=== PATIENT | male | born 1955 | race Caucasian/White ===

== ENCOUNTER → 2017-05-04 | Outpatient (CLI) | payer OTHER | LOC: BMCIMAGING 11:12 | PROVIDERS: ATTEND Internal Medicine | DX: R07.2 Precordial pain (principal); R10.10 Upper abdominal pain, unspecified; J98.4 Other disorders of lung ==

== ENCOUNTER → 2017-05-05 | Outpatient (CLI) | payer OTHER | LOC: BRMIMAGING 08:49 | PROVIDERS: ATTEND Internal Medicine | DX: K86.89 Other specified diseases of pancreas (principal); K80.20 Calculus of gallbladder without cholecystitis without obstruction | CPT/HCPCS: 76700-PO ==

== ENCOUNTER → 2017-05-08 | Outpatient (CLI) | payer OTHER ==
[~2017-05-08] MED LIST: IOPAMIDOL (ISOVUE-300) 100 ML BTL ONE
== END ==
LOC: CIMAGING 13:10
PROVIDERS: ATTEND Internal Medicine
DX: K86.2 Cyst of pancreas (principal); K80.20 Calculus of gallbladder without cholecystitis without obstruction
CPT/HCPCS: 74177-PO; Q9967

== ENCOUNTER 2017-05-22 07:00 | Day surgery (SDC) | payer OTHER ==
[2017-05-22] MEDS ORDERED: LR 1,000 ML IV ONE (07:38)
--- NOTE | 2017-05-22 08:09 | PDANEPAE ---
ANE History of Present Illness 62 YO m pancreatic pseudocyst here for EUS EGD ANE Past Medical History - Cardiovascular History Hx Hypertension: No Hx Arrhythmias: No Hx Chest Pain: No Hx Coronary Artery / Peripheral Vascular Disease: No Hx CHF / Valvular Disease: No Hx Palpitations: No Cardiovascular History Comment: ABLATION FOR ATRIAL TACH. NO ISSUES SINCE - Pulmonary History Hx COPD: No Hx Asthma/Reactive Airway Disease: No Hx Recent Upper Respiratory Infection: No Hx Oxygen in Use at Home: No Hx Sleep Apnea: No Sleep Apnea Screening Result - Last Documented: Negative - Neurologic History Hx Cerebrovascular Accident: No Hx Seizures: No Hx Dementia: No - Endocrine History Hx Diabetes: No - Renal History Hx Renal Disorders: No - Liver History Hx Hepatic Disorders: No - Neurological & Psychiatric Hx Hx Neurological and Psychiatric Disorders: No - Cancer History Hx Cancer: No - Congenital Disorder History Hx Congenital Disorders: No - GI History Hx Gastrointestinal Disorders: Yes Gastrointestinal History Comment: DECREASED APPETITE. SMALL GALL STONES - Chronic Pain History Chronic Pain: No - Surgical History Prior Surgeries: LT ING HERNIA 2014. ISABEL BUNIONECTOMY. RT MIDDLE FINGER REPAIR. HEART CATH ABLATION ATRIAL TACH. 1989 ANE Review of Systems Review of Systems: - Exercise capacity METS (RN): 4 METS ANE Patient History - Allergies Allergies/Adverse Reactions: No Known Allergies Allergy (Unverified 05/21/17 16:04) - Home Medications Home Medications: Aspirin DAILY 05/21/17 [Last Taken 05/21/17 08:00] Herbal Drugs DAILY 05/21/17 [Last Taken Unknown] traMADol PRN 05/21/17 [Last Taken Unknown] - NPO status NPO Status: no food or drink >8 hours NPO Since - Liquids (Date): 05/21/17 NPO Since - Liquids (Time): 20:30 NPO Since - Solids (Date): 05/21/17 NPO Since - Solids (Time): 19:30 - Anes Hx Anes Hx: no prior problems - Smoking Hx Smoking Status: Former smoker - Alcohol Use Alcohol Use: Occasionally - Family Anes Hx Family Anes Hx: none ANE Labs/Vital Signs - Vital Signs Blood Pressure: 150/83 Heart Rate: 57 Respiratory Rate: 16 O2 Sat (%): 96 Height: 170.18 cm Weight: 72.575 kg ANE Physical Exam - Airway Neck exam: FROM Mallampati Score: Class 2 Mouth exam: normal dental/mouth exam Mouth image: 1 - missing 2 - missing - Pulmonary Pulmonary: no respiratory distress, clear to auscultation - Cardiovascular Cardiovascular: regular rate and rhythym, no murmur, rub, or gallop - ASA Status ASA Status: II ANE Anesthesia Plan Anesthesia Plan: GA with mask Total IV Anesthesia: Yes
[2017-05-22] MEDS ORDERED: PROPOFOL/EMULSION 500 MG/50 ML BOTTLE IV ONE ×2 (08:14→08:44)
[2017-05-22] MEDS ORDERED: NALOXONE HCL 0.4 MG/ML INJ IVP PRN (08:16)
[2017-05-22] MEDS ORDERED: ONDANSETRON 4 MG/2 ML VIAL IVP PRN (08:22)
[2017-05-22] MEDS ORDERED: ACETAMINOPHEN 500 MG TAB PO PRN (08:22)
--- NOTE | 2017-05-22 08:24 | PDGENHP ---
History & Physical Chief Complaint: panc lesion History of Present Illness: 62 year old male presents for evaluation of abdominal pain/abnl imaging Pertinent Past, Social, Family History: SoHx: + alc. FaMHx; No panc. PMHx: Arthritis Relevant Physical Exam: HEENT anicteric. CV RRR +s1s2. Lungs CTAB. Abd soft, nt Cardiorespiratory Assessment: asa 2
[2017-05-22] MEDS ORDERED: INDOMETHACIN 50 MG SUPP PR PRN (08:29)
[2017-05-22] MEDS ORDERED: NS 500 ML IV SCH (08:30)
[2017-05-22] MEDS ORDERED: levOFLOXACIN 500 MG/DEXTROSE/100 ML BAG IV ONE (08:41)
[2017-05-22 09:12] VITALS: TEMP 97.3
[2017-05-22 09:26] VITALS: RESP 14
[2017-05-22 09:57] VITALS: BP 154/86; PULSE 47; O2SAT 94
--- NOTE | 2017-05-22 10:04 | GIREPORT ---
[facility] Surgical Services - Endoscopy Department Patient Name: Artur Larios Procedure Date: 05/22/2017 8:24 AM Patient Type: Outpatient Attending MD/ ER Physician: Jerry Trevizo MD Procedure: Upper EUS Indications: Pancreatic cyst on CT scan, Epigastric abdominal pain Patient Profile: 62 year old male presents for evaluation of abnormal imaging/epsigsatri c abdominal pain. Providers: Jerry Trevizo MD Medicines: Monitored Anesthesia Care Complications: No immediate complications. Estimated blood loss: Minimal. Description of Procedure: After obtaining informed consent, the endoscope was passed under direct vision. Throughout the procedure, the patient's blood pressure, pulse, and oxygen saturations were monitored continuous ly. The Endosonoscope was introduced through the mouth, and advanced to the second part of duodenum. The Endoscope was introduced through the mouth, and advanced to the second part of duodenum. Findings: Endoscopic Finding : The examined esophagus was normal. A small hiatal hernia was present. Patchy mildly erythematous mucosa was found in the gastric body and in the gastric antrum. Biops ies were taken with a cold forceps for histology. The examined duodenum was normal. Endosonographic Finding : Pancreatic parenchymal abnormalities were noted in the entire pancreas. These consisted of hyperechoic foci. A hypoechoic lesion was identified in the pancreatic body. It is not in obvious communication wi th the pancreatic duct. The lesion measured 30 mm by 33 mm in maximal cross-sectional diameter. The re was a cystic portion involved. Resolving pseudocyst versus other? Fine needle aspiration for cyt ology was performed. Color Doppler imaging was utilized prior to needle puncture to confirm a lack of significant vascular structures within the needle path. One pass was made with the 25 gauge need le using a transduodenal approach. A stylet was used. A profile grinder technician was present and performed a preliminary cytologic examination. Preliminary cytology is suggestive of a benign lesion (final results are pending). There was no sign of significant endosonographic abnormality in the entire main bile duct and in the gallbladder. An unremarkable gallbladder and no stones were identified. No lymphadenopathy seen. Estimated Blood Loss: Estimated blood loss was minimal. Post Op Diagnosis: - Normal esophagus. - Small hiatal hernia. - Erythematous mucosa in the gastric body and antrum. Biopsied. - Normal examined duodenum. - Pancreatic parenchymal abnormalities consisting of hyperechoic foci w ere noted in the entire pancreas. - A lesion was seen in the pancreatic body. Fine needle aspiration perf ormed. - There was no sign of significant pathology in the entire main bile du ct and in the gallbladder. Recommendation: - Discharge patient to home (with escort). - Await cytology results and await path results. - CT scan in 3 months - No alcohol - Low fat diet. - Follow up in office in 6 weeks. - Thank you for allowing Jerry Trevizo MD Jerry Trevizo MD 05/22/2017 10:04:30 AM Number of Addenda: 0 Note Initiated On: 05/22/2017 8:24 AM [email or web address]
--- NOTE | 2017-05-22 10:39 | POSTANESTH ---
Post Anesthetic Evaluation Cardiovascular Status: Normal, Stable, Similar to Pre-Op Cond Respiratory Status: Normal, Stable, Similar to Pre-op Cond. Level of Consciousness/Mental Status: Can Participate in Eval, Alert and Oriented Pain Control: Adequate, Prn Tx Ordered Nausea/Vomiting Control: Adequate, Prn Tx Ordered Complications Possibly Related to Anesthesia: None Noted
== END 2017-05-22 10:24 | disposition home or self-care (01) ==
LOC: FSGY 07:00
PROVIDERS: ATTEND Internal Medicine Gastroenterology
PROC: 0F9G8ZX Drainage of Pancreas, Via Natural or Artificial Opening Endoscopic, Diagnostic (ICD-10-PCS; principal; 2017-05-22 08:30)
PROC: 0DB68ZX Excision of Stomach, Via Natural or Artificial Opening Endoscopic, Diagnostic (ICD-10-PCS; principal; 2017-05-22 08:30)
DX: D13.6 Benign neoplasm of pancreas (principal); K31.89 Other diseases of stomach and duodenum; K86.9 Disease of pancreas, unspecified; R10.13 Epigastric pain; K44.9 Diaphragmatic hernia without obstruction or gangrene
CPT/HCPCS: J1956; J2704